=== PATIENT | male | born 1960 | race Caucasian/White ===

== ENCOUNTER 2022-02-06 12:10 | Outpatient (CLI) | payer OTHER, SELFPAY | END 2022-02-06 12:11 | disposition home or self-care (01) | LOC: AMB 02-14 18:36 | PROVIDERS: Visit Provider Emergency Medicine Emergency Medical Services | DX: R42 Dizziness and giddiness (principal) | CPT/HCPCS: A0425; A0427 ==

== ENCOUNTER 2022-02-06 12:44 | Emergency (ER) | payer OTHER, SELFPAY ==
[2022-02-06 12:56] VITALS: BP 130/79; PULSE 88; RESP 16; TEMP 36.2; O2SAT 98; BMI 27.5
--- NOTE | 2022-02-06 13:14 | ED_ITS ---
HPI - General Adult General Chief complaint: Dizziness/Vertigo Stated complaint: Dizzy Time Seen by Provider: 02/06/22 12:52 Source: patient Mode of arrival: EMS Limitations: no limitations History of Present Illness HPI narrative: 62-year-old male coming in today complaining of dizziness. States that he was in his usual state health at work when all of a sudden he straightened up after shoveling and the world started spinning around him. He states that if he closes his eyes or stays perfectly still the sensation dissipates. He states that turning his head quickly makes it worse. He feels nauseated when it comes but he has not vomited. He does not have a headache or neck pain. He denies any recent head injury. He states that this has happened to him in the past, a long time ago-he does not really remember any of the details as far as aggravating or alleviating symptoms or how long it lasted. He denies any new medications. No recent traveling. He denies any confusion, slurred speech, or focal neurologic deficits. Related Data Previous Rx's Medication Instructions Recorded meclizine 25 mg tablet 25 mg PO BID PRN #10 tabs 02/06/22 Allergies Allergy/AdvReac Type Severity Reaction Status Date / Time No Known Drug Allergies Allergy Verified 02/06/22 12:55 Review of Systems Status of ROS: Reports: 10 or more systems reviewed and unremarkable except as noted in History and below [facility] [place] Social History Smoking Status: Never smoker Non-prescribed substance use: denies use Exam Narrative: Exam Narrative: Well-nourished well-developed patient in no acute distress. Alert and oriented. Answers questions appropriately. Mood and affect are appropriate. Thoughts are goal oriented and rational. No tangential or magical thinking noted. Patient speaks in full sentences without needing to catch their breath. HEENT: Normocephalic atraumatic. Pupils are equally round reactive to light. Extraocular muscles are intact. Conjunctivae are moist without any icterus noted. Moist mucous membranes. Posterior pharynx is normal. Neck is soft without any lymphadenopathy or thyromegaly. No masses are appreciated. Cardiovascular: Heart is regular rate and rhythm S1 and S2 are present without any murmurs. Lungs: Clear to auscultation bilaterally no wheezes rhonchi or rales are appreciated. Patient takes deep breaths without any discomfort. Extremities: Bilateral lower extremities are without edema. Normal DP and PT pulses. Skin: Well perfused without any obvious rashes. Strength is 5/5 of the upper and lower extremities. Reflexes are 2+ and symmetric at the knees. Cranial nerves 3-12 are normal. He has a grossly positive Hallpike exam when he looks to the left. He has horizontal nystagmus with this procedure. He has no vertical nystagmus. Patient is asymptomatic if he is lying still in bed. Const: Vital Signs, click to edit/add: Vital Signs - 24 hr 02/06/22 12:56 Temperature 97.2 F L Pulse Rate [Pulse Oximeter] 88 Respiratory Rate 16 Blood Pressure [Le ft Upper Arm] 130/79 Pulse Oximetry 98 Oxygen Delivery Me thod Room Air Course Course Hospital Course: While in the ER, patient received a L of normal saline, Zofran and meclizine. He felt a little bit better. Again if he closed his eyes or sat perfectly still, symptoms could go away. Vital Signs Vital signs: Initial Vital Signs Temperature 97.2 F L 02/06/22 12:56 Temperature Source Temporal Artery Scan 02/06/22 12:56 Pulse Rate 88 02/06/22 12:56 Respiratory Rate 16 02/06/22 12:56 Blood Pressure 130/79 02/06/22 12:56 Blood Pressure Mean 96 02/06/22 12:56 Pulse Oximetry 98 02/06/22 12:56 Oxygen Delivery Method 02/06/22 12:56 Vital Signs Temperature 97.2 F L 02/06/22 12:56 Pulse Rate 88 02/06/22 12:56 Respiratory Rate 16 02/06/22 12:56 Blood Pressure 130/79 02/06/22 12:56 Pulse Oximetry 98 02/06/22 12:56 Oxygen Delivery Method 02/06/22 12:56 Temperature 97.2 F L 02/06/22 12:56 Pulse Rate 88 02/06/22 12:56 Respiratory Rate 16 02/06/22 12:56 Blood Pressure 130/79 02/06/22 12:56 Pulse Oximetry 98 02/06/22 12:56 Oxygen Delivery Method 02/06/22 12:56 Medical Decision Making MDM Narrative Medical decision making narrative: 62-year-old male with benign paroxysmal positional vertigo. We discussed moving slowly, taking meclizine as needed, staying well hydrated and resting. We discussed reasons to return to the ER. We discussed in the Patti maneuver. Discharge Plan Discharge Clinical Impression: Benign paroxysmal positional vertigo Patient Disposition: Home, Self-Care Condition: Stable Additional Instructions: Stay well hydrated and get plenty of rest. Move slowly. If things are getting worse, return to the ER. Otherwise follow-up with your primary care provider next week. Prescriptions: New meclizine 25 mg tablet 25 mg PO BID PRNQty: 10 0RF Follow Up/Referrals: Provider,Not a Local [Primary Care Provider] - Stand Alone Forms: [employer] Info Instructions
[2022-02-06] MEDS: MECLIZINE HCL 25 MG TABLET PO (13:25)
[2022-02-06] MEDS: 0.9 % SODIUM CHLORIDE 1000 ml 1,000 ML IV (13:25)
[2022-02-06] MEDS: ONDANSETRON 2 MG/ML inj 4 MG IVP (13:27)
[2022-02-06 15:15] VITALS: BP 136/68; RESP 16; O2SAT 95
--- NOTE | 2022-02-06 15:52 | ED.NURSE ---
Patient readied for discharge. He reports glasses are missing. According to patient EMS took his glasses and put them in his jacket. EMS contact and awaiting call back.
== END 2022-02-06 16:07 | disposition home or self-care (01) ==
PROVIDERS: Emergency Provider Family Medicine
DX: H81.10 Benign paroxysmal vertigo, unspecified ear (principal)
CPT/HCPCS: 96374; 99283; 99284; A9270; J2405; J7030